=== PATIENT | male | born 1995 | race Caucasian/White ===

== ENCOUNTER 2018-09-21 11:36 | Emergency (ER) | payer OTHER | END 2018-09-21 13:59 | disposition home or self-care (01) | LOC: FTE 11:36 | DX: S99.921A Unspecified injury of right foot, initial encounter (principal); S99.922A Unspecified injury of left foot, initial encounter; S39.92XA Unspecified injury of lower back, initial encounter; W23.0XXA Caught, crushed, jammed, or pinched between moving objects, initial encounter; Y92.89 Other specified places as the place of occurrence of the external cause | CPT/HCPCS: 72100; 73630-50; 99284-25 ==